=== PATIENT | female | born 1990 | race Caucasian/White ===

== ENCOUNTER 2020-09-04 12:41 | Outpatient (REF) | payer MEDICAID, SELFPAY ==
--- NOTE | 2020-09-04 11:40 | PAPFT_PTH ---
PATIENT: Kalpana Hamm LOC: [facility] U#:[id number] AGE/SX: 29/F ROOM: RE09/04/[address]: ALEN Lloyd : 1990 BED: DIS: 09/04/2020 SPEC #: [id number] RECD: 09/04/20 13:05 STATUS: JOSELIN REElizabeth #: [id number] JESUS: 09/04/20 11:[address]: Kalpana Betancourt DEPT: [facility], [facility] Cytology RECD BY: Karen Navarro Tissues: 1 - CX/ENDOCX FOR PAP SMEARS Procedures: PAP THIN PREP/[facility] Screening Comments: [id number]
== END 2020-09-04 13:01 ==
LOC: LBN 12:41
PROVIDERS: Visit Provider Nurse Practitioner Family
DX: Z12.4 Encounter for screening for malignant neoplasm of cervix (principal)
CPT/HCPCS: 88142